=== PATIENT | female | born 1940 | race Caucasian/White ===

== ENCOUNTER 2017-12-27 02:20 | Emergency (ER) | payer MEDICARE ==
[2017-12-27] MEDS ORDERED: NORMAL SALINE 500 ML IV ONE (02:27)
[2017-12-27] MEDS ORDERED: ONDANSETRON HCL INJ/PF 4 MG/2 ML SDV IV ONE (02:28)
--- NOTE | 2017-12-27 02:55 | ER Document Report ---
ED General - General Chief Complaint: Altered Mental Status Stated Complaint: SHORT OF BREATH,NAUSEA Time Seen by Provider: 12/27/17 02:27 Notes: Patient is a pleasant 77-year-old female who presents with complaint of some confusion some difficulty breathing. Patient and her family just recently moved here from [place]. She does have history of lung cancer. Daughter says that for a while now she has not been eating well. She recently she refused to be any type of solid foods. She says up in [place] that Medicaid and they are giving her Ensure which she did well with but they have been unable to get a since moving here except not transferred into new insurance. She denies any fevers. Had some vomiting. She has had some intermittent diarrhea as well. She does have history of C. difficile. She has not recently been on antibiotics. She does not have any abdominal pain. No chest pain. She initially was short of breath and will be confused and paramedics arrived. When they checked her blood sugar read low. They therefore gave her some oral glucose and her blood sugar came up to 100 and then her dyspnea and confusion resolved. She is not diabetic. She is on seizure medications. She has a history of a brain tumor because of metastases from her lung cancer. Because of this she has a history of seizures. She is currently on seizure medications. Daughter says she has not had a seizure since August. Daughter says she will sometimes get seizures when she starts developing infection such as UTIs which she frequently gets. She has not been established with a doctor in the area yet. No other complaints at this time. TRAVEL OUTSIDE OF THE [place] IN LAST 30 DAYS: No - Related Data Allergies/Adverse Reactions: acetaminophen [From Tylenol] Allergy (Verified 12/27/17 18:44) Penicillins Allergy (Verified 12/27/17 12:01) Past Medical History - Social History Smoking Status: Unknown if Ever Smoked Chew tobacco use (# tins/day): No Frequency of alcohol use: None Drug Abuse: None Family History: Reviewed & Not Pertinent Patient has suicidal ideation: No Patient has homicidal ideation: No Pulmonary Medical History: Reports: Hx COPD Neurological Medical History: Reports: Hx Migraine Renal/ Medical History: Denies: Hx Peritoneal Dialysis Physical Exam - Vital signs Vitals: Resp 17 12/27/17 02:30 Course - Re-evaluation Re-evalutation: 04/11/18 05:44 Patient continues to look clinically very well here. She was able to eat a cup and half applesauce without any difficulty. Her laboratory evaluation is unremarkable except for mild UTI. Will place her on 3 days of antibiotics for this. Patient also has diarrhea for last 4 days and is prone to C. difficile infections he gets infrequently according to the daughter. I will therefore place her on Flagyl. She was able to give a stool sample while here in the ER. She is afebrile and vital signs are stable. Feel she is safe to be discharged home. I talked to daughter at length informed her the importance of following up with primary care doctor in area. I will give them a list of primary care doctors. Also give them referral to Dr. Lux being that she has a history of lung cancer and her chest x-ray shows what appears to be either a spiculated mass or scarring from her previous cancer. I did inform the daughter of this and the need to follow-up closely with oncologist and the daughter agrees to do this. Patient also is to be followed by digital asset specialist and therefore will refer her to Dr. Forbes. I informed the daughter that the need to start given the patient nutritional supplement drinks pain that she does not eat much. Also to continue give her soft diet of food as she was able eat applesauce well and does seem to tolerate soft foods well. I informed her return to ER immediately if she has recurrent low blood sugar, fevers, recurrent vomiting, any pain, or she appears unwell in any way. Patient and daughter agree with plan and patient will be discharged home. Dictation of this chart was performed using voice recognition software; therefore, there may be some unintended grammatical errors. - Vital Signs Vital signs: Temp Pulse Resp BP Pulse Ox 98.7 F 71 19 152/82 H 98 12/27/17 05:27 12/27/17 02:39 12/27/17 05:27 12/27/17 05:27 12/27/17 05:27 - Laboratory Result Diagrams: 12/27/17 03:50 12/27/17 03:50 Laboratory results interpreted by me: 12/27/17 12/27/17 12/27/17 02:23 03:50 03:50 Hgb 11.9 L Hct 35.0 L Seg Neutrophils % 87.7 H Lymphocytes % 6.1 L Sodium 146.8 H Chloride 109 H Glucose 149 H POC Glucose 117 H AST 12 L Total Protein 6.2 L Ur Leukocyte Esterase 12/27/17 03:50 Hgb Hct Seg Neutrophils % Lymphocytes % Sodium Chloride Glucose POC Glucose AST Total Protein Ur Leukocyte Esterase LARGE H - EKG Interpretation by Me Additional EKG results interpreted by me: 12/27/17 02:54 EKG is reviewed and interpreted by me. EKG shows sinus rhythm with a rate of [address] segment elevation or depression. No ischemic T-wave inversions. Pure interval slightly prolonged. QRS duration and QTc intervals are within normal range. No old EKG available for comparison. Discharge - Discharge Clinical Impression: UTI (urinary tract infection), Hypoglycemia Diarrhea Qualifiers: Diarrhea type: unspecified type Qualified Code(s): R19.7 - Diarrhea, unspecified Condition: Good Disposition: HOME, SELF-CARE Instructions: Family Physicians / Practices Additional Instructions: Please take the antibiotics as prescribed. please return to the ER immediately if you develop difficulty breathing, fevers, abdominal pain, confusion, or feel that you are worsening in any way. Please call the oncologist, Dr. Lux, to make a close follow up appointment to continue to manage your lung cancer. Please call the digital asset specialist, Dr. Forbes, to make a follow up appointment. I have also provided a list of primary care physicians in the area. Please establish yourself with a primary care physician to help manage your chronic medical problems. Continue to eat soft foods such as apple sauce and drink calorie drinks such as Ensure. Referrals: KODY FORBES MD [ACTIVE STAFF] - Follow up in 3-5 days STEVEN LUX MD [ACTIVE STAFF] - Follow up in 3-5 days
--- NOTE | 2017-12-27 03:33 | RADIOLOGY REPORT (SQ) ---
EXAM DESCRIPTION: CHEST SINGLE VIEW CLINICAL HISTORY: 77 years Female, dyspnea, hypoglycemia COMPARISON: None. NUMBER OF VIEWS/TECHNIQUE: 1/AP LIMITATIONS: Rotation. FINDINGS: Moderate right suprahilar spiculated opacity measures 3.2 cm, right-sided tracheal shift, rotation artifact, prominent interstitium, normal cardiac silhouette, atherosclerosis, and intact bony thorax. IMPRESSION: Right suprahilar spiculated mass may indicate current or prior malignancy/scar.
[2017-12-27 04:09] LABS: ABSOLUTE EOSINOPHILS # (AUTO) 0.1 10^3/uL (0.0-0.6); ABSOLUTE LYMPHOCYTES (AUTO) 0.5 10^3/uL (0.5-4.7); ABSOLUTE MONOCYTES (AUTO) 0.5 10^3/uL (0.1-1.4); ABSOLUTE NEUT (AUTO) 7.9 10^3/uL (1.7-8.2); BASOPHILS % (AUTO) 0.5 % (0-2); EOSINOPHILS % (AUTO) 0.6 % (0-6); HEMOGLOBIN 11.9 g/dL (12.0-15.5); LYMPHOCYTES % (AUTO) 6.1 % (13-45); MEAN CORPUSCULAR HEMOGLOBIN 29.8 pg (27.0-33.4); MEAN CORPUSCULAR VOLUME 88 fl (80-97); MONOCYTES % (AUTO) 5.1 % (3-13); PLATELET COUNT 163 10^3/uL (150-450); RED BLOOD COUNT 3.99 10^6/uL (3.72-5.28); RED CELL DISTRIBUTION WIDTH 13.4 % (11.5-14.0); SEGMENTED NEUTROPHILS % (AUTO) 87.7 % (42-78); TOTAL CELLS COUNTED % (AUTO) 100 %
[2017-12-27 04:20] LABS: ALANINE AMINOTRANSFERASE 13 U/L (9-52); ALBUMIN 3.8 g/dL (3.5-5.0); ALKALINE PHOSPHATASE 102 U/L (38-126); ANION GAP 12 (5-19); APPEARANCE,URINE SLIGHTLY-CLOUDY; ASPARTATE AMINO TRANSFERASE 12 U/L (14-36); BILIRUBIN,DIRECT 0.2 mg/dL (0.0-0.4); BILIRUBIN,TOTAL 0.3 mg/dL (0.2-1.3); BILIRUBIN,URINE NEGATIVE (NEGATIVE); BLOOD UREA NITROGEN 13 mg/dL (7-20); CALCIUM 9.6 mg/dL (8.4-10.2); CARBON DIOXIDE 26 mmol/L (22-30); CHLORIDE 109 mmol/L (98-107); COLOR,URINE YELLOW; GLUCOSE 149 mg/dL (75-110); GLUCOSE, URINE NEGATIVE (NEGATIVE); KETONES,URINE NEGATIVE (NEGATIVE); LEUKOCYTE ESTERASE,URINE LARGE (NEGATIVE); LIPASE 59.8 U/L (23-300); NITRITE,URINE NEGATIVE (NEGATIVE); POTASSIUM 3.8 mmol/L (3.6-5.0); PROTEIN,URINE NEGATIVE (NEGATIVE); SODIUM 146.8 mmol/L (137-145); TOTAL PROTEIN 6.2 g/dL (6.3-8.2); URINE SPECIFIC GRAVITY 1.011; UROBILINOGEN,URINE NEGATIVE mg/dL (<2.0)
[2017-12-27] MEDS ORDERED: METRONIDAZOLE 500 MG TABLET PO ONE (05:17)
[2017-12-27] MEDS ORDERED: CEPHALEXIN 500 MG CAPSULE PO ONE (05:17)
[2017-12-27 05:40] VITALS: BP 152/82
--- NOTE | 2017-12-27 07:34 | EKG REPORT ---
SEVERITY:- NORMAL ECG - SINUS RHYTHM : Confirmed by: Virgil Gray MD 27-Dec-2017 07:34:19
== END 2017-12-27 05:40 | disposition home or self-care (01) ==
LOC: ER 02:20
DX: E16.2 Hypoglycemia, unspecified (principal); N39.0 Urinary tract infection, site not specified; R19.7 Diarrhea, unspecified; R11.10 Vomiting, unspecified; J44.9 Chronic obstructive pulmonary disease, unspecified; R56.9 Unspecified convulsions; Z79.899 Other long term (current) drug therapy; Z85.118 Personal history of other malignant neoplasm of bronchus and lung; Z85.841 Personal history of malignant neoplasm of brain; Z88.6 Allergy status to analgesic agent; Z88.0 Allergy status to penicillin
CPT/HCPCS: 93005; 99285; 96361; 96374; 36415; 82962; 83690; 85025; 80053; 81001; 84484; 71045; 93010; A9270 ×2; J2405; J7040

== ENCOUNTER 2018-01-12 09:05 | Observation (INO) | payer MEDICARE, MEDICAID ==
--- NOTE | 2018-01-12 09:43 | ER Document Report ---
ED Medical Screen (RME) - General Chief Complaint: Vomiting/Diarrhea Stated Complaint: VOMITING Time Seen by Provider: 01/12/18 09:35 Mode of Arrival: Wheelchair Information source: Patient, Relative Notes: 78-year-old female who was recently admitted for UTI presents with daughter's complaint of diarrhea, history of C. difficile, as well as headache with left eye pain. Patients daughter notes hx of brain surgery for a tumor Patient notes light sensitivity I have greeted and performed a rapid initial assessment of this patient. A comprehensive ED assessment and evaluation of the patient, analysis of test results and completion of the medical decision making process will be conducted by additional ED providers. PHYSICAL EXAMINATION: GENERAL: Elderly female holding her left eye and pain. HEAD: Atraumatic, normocephalic. EYES: Pupils equal round extraocular movements intact, conjunctiva slightly injected on the left ENT: Nares patent NECK: Normal range of motion LUNGS: No respiratory distress Musculoskeletal: Normal range of motion NEUROLOGICAL: Normal speech, normal gait. PSYCH: Normal mood, normal affect. SKIN: Warm, Dry, normal turgor, no rashes or lesions noted. TRAVEL OUTSIDE OF THE [place] IN LAST 30 DAYS: No - Related Data Allergies/Adverse Reactions: acetaminophen [From Tylenol] Allergy (Verified 01/12/18 09:07) Penicillins Allergy (Verified 01/12/18 09:07) Past Medical History - Past Medical History Cardiac Medical History: Reports: Hx Hypertension Pulmonary Medical History: Reports: Hx COPD Neurological Medical History: Reports: Hx Migraine, Hx Seizures Endocrine Medical History: Denies: Hx Diabetes Mellitus Type 1, Hx Diabetes Mellitus Type 2 Renal/ Medical History: Denies: Hx Peritoneal Dialysis Malignancy Medical History: Reports: Hx Brain Cancer - Surgery, Hx Colorectal Cancer - Surgery, Hx Lung Cancer - Chemo and radiation Psychiatric Medical History: Reports: Hx Dementia Infectious Medical History: Reports: Hx C-Diff Past Surgical History: Reports: Hx Appendectomy, Hx Hysterectomy, Other - Surgery for colon cancer and brain tumor - Immunizations History of Influenza Vaccine for 06/2017 - 11/2017 Season: No Physical Exam - Vital signs Vitals: Temp Pulse Resp BP Pulse Ox 97.8 F 79 16 169/74 H 98 01/12/18 09:27 01/12/18 09:27 01/12/18 09:27 01/12/18 09:27 01/12/18 09:27 Course - Vital Signs Vital signs: Temp Pulse Resp BP Pulse Ox 97.8 F 79 16 169/74 H 98 01/12/18 09:27 01/12/18 09:27 01/12/18 09:27 01/12/18 09:27 01/12/18 09:27
[2018-01-12] MEDS ORDERED: ONDANSETRON 4 MG TAB.RAPDIS PO ONE (09:54)
--- NOTE | 2018-01-12 10:18 | RADIOLOGY REPORT (SQ) ---
EXAM DESCRIPTION: CT HEAD WITHOUT COMPLETED DATE/TIME: 01/12/2018 10:07 am REASON FOR STUDY: headache , left eye pain COMPARISON: 12/27/2017 TECHNIQUE: Axial images acquired through the brain without intravenous contrast. Images reviewed wi th bone, brain and subdural windows. Additional sagittal and coronal reconstructions were generated. Images stored on PACS. All CT scanners at this facility use dose modulation, iterative reconstruction, and/or weight based d osing when appropriate to reduce radiation dose to as low as reasonably achievable (ALARA). [facility]: Dose Right [facility]: CareDose [facility]: Dose Right [facility]: Teradose 4D [facility]: [employer] RADIATION DOSE: CT Rad equipment meets quality standard of care and radiation dose reduction techniq ues were employed. CTDIvol: 53.2 mGy. DLP: 1017 mGy-cm.mGy. LIMITATIONS: None. FINDINGS: VENTRICLES: Prominent. 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 Stable encephalomalaci a both frontal lobes. No evidence of acute infarct. CEREBELLUM: No masses. No hemorrhage. No alteration of density. No evidence for acute infarction. EXTRAAXIAL SPACES: See above. ORBITS AND GLOBE: No intra- or extraconal masses. Normal contour of globe without masses. CALVARIUM: No fracture. PARANASAL SINUSES: No fluid or mucosal thickening. SOFT TISSUES: No mass or hematoma. OTHER: No other significant finding. IMPRESSION: Chronic changes. No acute findings. EVIDENCE OF ACUTE STROKE: NO. TECHNICAL DOCUMENTATION: JOB ID: [id number] Quality ID # [id number]: Final reports with documentation of one or more dose reduction techniques (e.g., Au tomated exposure control, adjustment of the mA and/or kV according to patient size, use of iterative reconstruction technique) 2010 [employer]- All Rights Reserved Reading location - IP/workstation name: [email or web address]
[2018-01-12] MEDS ORDERED: TETRACAINE HCL 0.5% OPH SOLN 2 ML OD ONE (11:07)
[2018-01-12] MEDS: NORMAL SALINE 1000 ML 1,000 ML IV PRN ×2 (11:13→21:09)
[2018-01-12 11:18] LABS: HEMATOCRIT 39.7 % (36.0-47.0); HEMOGLOBIN 13.2 g/dL (12.0-15.5); MEAN CORPUSCULAR HGB CONC 33.2 g/dL (32.0-36.0); MEAN CORPUSCULAR VOLUME 87 fl (80-97); PLATELET COUNT 222 10^3/uL (150-450); RED BLOOD COUNT 4.54 10^6/uL (3.72-5.28); RED CELL DISTRIBUTION WIDTH 13.6 % (11.5-14.0); WHITE BLOOD COUNT 13.9 10^3/uL (4.0-10.5)
[2018-01-12 11:34] LABS: ALANINE AMINOTRANSFERASE 10 U/L (9-52); ALBUMIN 4.7 g/dL (3.5-5.0); ALKALINE PHOSPHATASE 132 U/L (38-126); ANION GAP 12 (5-19); ASPARTATE AMINO TRANSFERASE 21 U/L (14-36); BILIRUBIN,DIRECT 0.3 mg/dL (0.0-0.4); BILIRUBIN,TOTAL 0.5 mg/dL (0.2-1.3); BLOOD UREA NITROGEN 16 mg/dL (7-20); CALCIUM 10.1 mg/dL (8.4-10.2); CARBON DIOXIDE 27 mmol/L (22-30); CHLORIDE 102 mmol/L (98-107); GLUCOSE 139 mg/dL (75-110); POTASSIUM 4.1 mmol/L (3.6-5.0); SODIUM 141.1 mmol/L (137-145); TOTAL PROTEIN 8.2 g/dL (6.3-8.2)
[2018-01-12 11:48] LABS: ABSOLUTE LYMPHOCYTES# (MANUAL) 0.1 10^3/uL (0.5-4.7); ABSOLUTE MONOCYTES # (MANUAL) 0.3 10^3/uL (0.1-1.4); ABSOLUTE NEUTROPHILS# (MANUAL) 13.5 10^3/uL (1.7-8.2); BASOPHILS % (MANUAL) 0 % (0-2); EOSINOPHILS % (MANUAL) 0 % (0-6); LYMPHOCYTES % (MANUAL) 1 % (13-45); MONOCYTES % (MANUAL) 2 % (3-13); SEGMENTED NEUTROPHILS % (MAN) 97 % (42-78); TOTAL CELLS COUNTED 100
[2018-01-12 11:49] LABS: ANISOCYTOSIS SLIGHT; OVALOCYTES SLIGHT; PLATELET COMMENT ADEQUATE; POIKILOCYTOSIS SLIGHT; TEAR DROP CELLS SLIGHT
--- NOTE | 2018-01-12 16:52 | ER Document Report ---
ED GI/ - General Mode of Arrival: Wheelchair Information source: Patient TRAVEL OUTSIDE OF THE [place] IN LAST 30 DAYS: No - HPI Patient complains to provider of: Diarrhea. No: Abdominal pain, Dysuria, Feeding tube problem, Flank pain, Greene catheter problem, Hematuria, Missed/ Late menses, Pelvic pain, , Urinary retention, Vaginal bleeding, Vaginal discharge, Vaginal pain, Vomiting, Other Severity at maximum: Moderate Severity in ED: Moderate Pain Level: 2 <GRACIE FRANK - Last Filed: 01/12/18 16:52> <OMAR MANRIQUE - Last Filed: 01/13/18 22:47> - General Chief Complaint: Vomiting/Diarrhea Stated Complaint: VOMITING Time Seen by Provider: 01/12/18 09:35 Notes: History of [id number]-old female who was recently admitted for UTI presents with daughter's complaint of diarrhea, history of C. difficile, as well as headache with left eye pain. Patients daughter notes hx of brain surgery for a tumor . No seizure activity. Complain of pain over the left eye. Left eye has a cataract which cannot be operated. She is blind from . No cough shortness of breath chest pain. Patient notes light sensitivity REVIEW OF SYSTEMS: CONSTITUTIONAL : Denies fever, chills, or sweats. Denies recent illness. EENT: Denies eye, ear, throat, or mouth pain or symptoms. Denies nasal or sinus congestion or discharge. Denies throat, tongue, or mouth swelling or difficulty swallowing. CARDIOVASCULAR: Denies chest pain. Denies palpitations or racing or irregular heart beat. Denies ankle edema. RESPIRATORY: Denies cough, cold, or chest congestion. Denies shortness of breath, difficulty breathing, or wheezing. GASTROINTESTINAL: Denies abdominal pain or distention. Denies nausea, vomiting , or diarrhea. Denies blood in vomitus, stools, or per rectum. Denies black, tarry stools. Denies constipation. GENITOURINARY: Denies difficulty urinating, painful urination, burning, frequency, blood in urine, or discharge. FEMALE GENITOURINARY: Denies vaginal bleeding, heavy or abnormal periods, irregular periods. Denies vaginal discharge or odor. MUSCULOSKELETAL: Denies back or neck pain or stiffness. Denies joint pain or swelling. SKIN: Denies rash, lesions or sores. HEMATOLOGIC : Denies easy bruising or bleeding. LYMPHATIC: Denies swollen, enlarged glands. NEUROLOGICAL: Denies confusion or altered mental status. Denies passing out or loss of consciousness. Denies dizziness or lightheadedness. Denies headache. Denies weakness or paralysis or loss of use of either side. Denies problems with gait or speech. Denies sensory loss, numbness, or tingling. Denies seizures. PSYCHIATRIC: Denies anxiety or stress. Denies depression, suicidal ideation, or homicidal ideation. ALL OTHER SYSTEMS REVIEWED AND NEGATIVE. PHYSICAL EXAMINATION: GENERAL: seems to be in pain over the left eye. Lean female HEAD: Atraumatic, normocephalic. EYES: Pupils equal round and reactive to light, extraocular movements intact, conjunctiva on the left side is erythematous ENT: Nares patent, oropharynx clear without exudates. Moist mucous membranes. NECK: Normal range of motion, supple without lymphadenopathy LUNGS: Breath sounds clear to auscultation bilaterally and equal. No wheezes rales or rhonchi. HEART: Regular rate and rhythm without murmurs ABDOMEN: Soft, nontender, nondistended abdomen. No guarding, no rebound. No masses appreciated. Female : deferred Musculoskeletal: Normal range of motion, no pitting or edema. No cyanosis. NEUROLOGICAL: Cranial nerves grossly intact. Normal speech, normal gait. Normal sensory, motor exams PSYCH: Normal mood, normal affect. SKIN: Warm, Dry, normal turgor, no rashes or lesions noted. Dictation was performed using [employer] voice recognition software (GRACIE FRANK) - Related Data Allergies/Adverse Reactions: acetaminophen [From Tylenol] Allergy (Verified 01/12/18 09:07) Penicillins Allergy (Verified 01/12/18 09:07) Past Medical History - General Information source: Patient, Relative - Social History Smoking Status: Former Smoker Chew tobacco use (# tins/day): No Frequency of alcohol use: None Drug Abuse: None Family History: Reviewed & Not Pertinent Patient has suicidal ideation: No Patient has homicidal ideation: No - Past Medical History Cardiac Medical History: Reports: Hx Hypertension Pulmonary Medical History: Reports: Hx COPD Neurological Medical History: Reports: Hx Migraine, Hx Seizures Endocrine Medical History: Denies: Hx Diabetes Mellitus Type 1, Hx Diabetes Mellitus Type 2 Renal/ Medical History: Denies: Hx Peritoneal Dialysis Malignancy Medical History: Reports: Hx Brain Cancer - Surgery, Hx Colorectal Cancer - Surgery, Hx Lung Cancer - Chemo and radiation Psychiatric Medical History: Reports: Hx Dementia Infectious Medical History: Reports: Hx C-Diff Past Surgical History: Reports: Hx Appendectomy, Hx Hysterectomy, Other - Surgery for colon cancer and brain tumor <GRACIE FRANK - Last Filed: 01/12/18 16:52> Review of Systems - Review of Systems Constitutional: denies: No symptoms reported, See HPI, Chills, Diaphoresis, Fever, Malaise, Weakness, Other, Weight gain, Weight loss, Recent illness EENT: Eye pain. denies: No symptoms reported, See HPI, Eye discharge, Blurred vision, Tearing, Double vision, Ear pain, Ear discharge, Nose pain, Nose congestion, Nose discharge, Sinus pressure, Sinus discharge, Throat pain, Difficulty swallowing, Throat swelling, Mouth pain, Mouth swelling, Dental problem, Vertigo, Other Cardiovascular: denies: No symptoms reported, See HPI, Chest pain, Palpitations , Heart racing, Orthopnea, Dyspnea, Syncope, Dizziness, Lightheaded, Edema, Other, Paroxysmal Nocturnal Dysp Respiratory: denies: No symptoms reported, See HPI, Cough, Hurts to breathe, Hemoptysis, Short of breath, Sputum, Stridor, Wheezing, Other Gastrointestinal: denies: No symptoms reported, See HPI, Abdomen distended, Abdominal pain, Diarrhea, Nausea, Vomiting, Constipation, Blood streaked bowels , Poor appetite, Poor fluid intake, Blood in vomit, Black stools, Rectal bleeding, Last bowel movement, Fecal incontinence, Other Genitourinary: denies: No symptoms reported, See HPI, Burning, Dysuria, Discharge, Frequency, Flank pain, Hematuria, Incontinence, Pain, Urgency, Retention, Other Female Genitourinary: denies: No symptoms reported, See HPI, Last menstrual period, , Post menopausal, Heavy/abnormal periods, Irregular period, Vaginal bleeding, Vaginal discharge, Vaginal odor, Painful intercourse, Other <GRACIE FRANK - Last Filed: 01/12/18 16:52> Physical Exam <GRACIE FRANK - Last Filed: 01/12/18 16:52> <OMAR MANRIQUE - Last Filed: 01/13/18 22:47> - Vital signs Vitals: Temp Pulse Resp BP Pulse Ox 97.8 F 79 16 169/74 H 98 01/12/18 09:27 01/12/18 09:27 01/12/18 09:27 01/12/18 09:27 01/12/18 09:27 - Notes Notes: Dictated (GRACIE FRANK) Course - Laboratory Result Diagrams: 01/12/18 10:50 01/12/18 10:50 - Diagnostic Test Radiology reviewed: Reports reviewed - CT of the abdomen reported by radiologist as no new findings no tumors <GRACIE FRANK - Last Filed: 01/12/18 16:52> - Laboratory Result Diagrams: 01/13/18 04:18 01/13/18 04:18 - Diagnostic Test Radiology reviewed: Pending <OMAR MANRIQUE - Last Filed: 01/13/18 22:47> - Re-evaluation Re-evalutation: 01/12/18 16:55 I was examined under Elena lamp with fluorescein dye there is no injury noted as well as no foreign bodies (GRACIE FRANK) 01/12/18 19:39 Asked to see the patient upon discharge by nursing. Patient now complaining of chest pain that she states started this morning. She describes it as a intermittent sharp pain. Shortly after my first encounter with the patient she began having a seizure. Ativan and Keppra was administered for this. CTA of the chest was obtained and showed no evidence of PE or dissection. Cardiac enzymes were obtained and within normal limits. Patient will be admitted for observation. 01/13/18 22:46 (OMAR MANRIQUE) - Vital Signs Vital signs: Temp Pulse Resp BP Pulse Ox 98.2 F 85 18 168/67 H 99 01/13/18 19:56 01/13/18 19:56 01/13/18 19:56 01/13/18 19:56 01/13/18 19:56 - Laboratory Laboratory results interpreted by me: 01/12/18 01/12/18 01/12/18 10:50 10:50 16:08 WBC 13.9 H Seg Neuts % (Manual) 97 H Lymphocytes % (Manual) 1 L Monocytes % (Manual) 2 L Abs Neuts (Manual) 13.5 H Abs Lymphs (Manual) 0.1 L Glucose 139 H Alkaline Phosphatase 132 H Urine Protein 100 H Urine Ketones TRACE H Urine Blood SMALL H Ur Leukocyte Esterase SMALL H Discharge <GRACIE FRANK - Last Filed: 01/12/18 16:52> <OMAR MANRIQUE - Last Filed: 01/13/18 22:47> - Discharge Clinical Impression: Gastroenteritis, Chest pain, UTI (urinary tract infection), History of lung cancer, Seizure disorder, HTN (hypertension) Conjunctivitis Qualifiers: Conjunctivitis type: acute Acute conjunctivitis type: bacterial Laterality: bilateral Qualified Code(s): H10.33 - Unspecified acute conjunctivitis, bilateral Headache Qualifiers: Headache type: unspecified Headache chronicity pattern: acute headache Intractability: not intractable Qualified Code(s): R51 - Headache Condition: Fair Disposition: ADMITTED OBSERVATION
[2018-01-12 17:01] LABS: APPEARANCE,URINE CLOUDY; BILIRUBIN,URINE NEGATIVE (NEGATIVE); GLUCOSE, URINE NEGATIVE (NEGATIVE); KETONES,URINE TRACE mg/dL (NEGATIVE); LEUKOCYTE ESTERASE,URINE SMALL (NEGATIVE); NITRITE,URINE NEGATIVE (NEGATIVE); PROTEIN,URINE 100 mg/dL (NEGATIVE); URINE SPECIFIC GRAVITY 1.014; UROBILINOGEN,URINE NEGATIVE mg/dL (<2.0)
[2018-01-12 17:05] LABS: COLOR,URINE YELLOW
[2018-01-12] MEDS ORDERED: GENTAMICIN SULFATE 0.3% OPH SOLN 5 ML OU ONE (17:07)
[2018-01-12] MEDS ORDERED: ASPIRIN 81 MG TABLET, CHEWABLE PO ONE (20:13)
[2018-01-12] MEDS ORDERED: LEVETIRACETAM 500 MG/NACL-ISO 500 MG/100 ML RTUPB IV ONE (20:53)
[2018-01-12] MEDS ORDERED: LORAZEPAM INJ 2 MG/1 ML VIAL IV ONE ×3 (20:53→23:28)
[2018-01-12 21:11] LABS: CREATINE KINASE MB 1.21 ng/mL (<4.55)
[2018-01-12 21:15] LABS: TROPONIN I < 0.012 ng/mL
--- NOTE | 2018-01-12 21:30 | ER Document Report ---
ED General - General Chief Complaint: Vomiting/Diarrhea Stated Complaint: VOMITING Time Seen by Provider: 01/12/18 09:35 Mode of Arrival: Wheelchair Information source: Patient, Relative Notes: 78-year-old female with a history of hypertension, lung cancer, seizure disorder , colon cancer, brain cancer presented to the emergency department earlier today for nausea, vomiting and diarrhea. Upon discharge patient is now complaining of chest pain. I was asked by nursing to evaluate the patient for chest pain and elevated blood pressure. Patient states pain started this morning. She states that she did not want to say anything because she wanted to go home. She describes the pain as intermittent, sharp and with associated shortness of breath. Daughter is at the bedside and states patient had a recent PET scan which showed improvement of her lung cancer. Patient had a recent urinary tract infection and was placed on Cipro. Daughter reports that her last dose was yesterday. Patient recently moved to [place] and is currently staying at the [facility] with her daughter. Her cancer treatment was ongoing in [place]. TRAVEL OUTSIDE OF THE [place] IN LAST 30 DAYS: No - HPI Onset: This morning Onset/Duration: Intermittent Quality of pain: Stabbing Severity: Mild Associated symptoms: Chest pain, Diarrhea, Nausea, Vomiting, Shortness of breath Exacerbated by: Denies Relieved by: Denies Similar symptoms previously: Yes Recently seen / treated by doctor: Yes - Related Data Allergies/Adverse Reactions: acetaminophen [From Tylenol] Allergy (Verified 01/12/18 09:07) Penicillins Allergy (Verified 01/12/18 09:07) Past Medical History - General Information source: Patient, Relative - Social History Smoking Status: Former Smoker Chew tobacco use (# tins/day): No Frequency of alcohol use: None Drug Abuse: None Family History: Reviewed & Not Pertinent Patient has suicidal ideation: No Patient has homicidal ideation: No - Past Medical History Cardiac Medical History: Reports: Hx Hypertension Pulmonary Medical History: Reports: Hx COPD Neurological Medical History: Reports: Hx Migraine, Hx Seizures Endocrine Medical History: Denies: Hx Diabetes Mellitus Type 1, Hx Diabetes Mellitus Type 2 Renal/ Medical History: Denies: Hx Peritoneal Dialysis Malignancy Medical History: Reports: Hx Brain Cancer - Surgery, Hx Colorectal Cancer - Surgery, Hx Lung Cancer - Chemo and radiation Psychiatric Medical History: Reports: Hx Dementia Infectious Medical History: Reports: Hx C-Diff Past Surgical History: Reports: Hx Appendectomy, Hx Hysterectomy, Other - Surgery for colon cancer and brain tumor Review of Systems - Review of Systems Notes: Patient denies fever, headache, ear pain, sore throat, cough, abdominal pain, back pain, dysuria, hematuria, rash. Complaining of nausea, vomiting, diarrhea , chest pain, worsening shortness of breath. Physical Exam - Vital signs Vitals: Temp Pulse Resp BP Pulse Ox 97.8 F 79 16 169/74 H 98 01/12/18 09:27 01/12/18 09:27 01/12/18 09:27 01/12/18 09:01/12/18 09:27 Interpretation: Normal - Notes Notes: PHYSICAL EXAMINATION: GENERAL: ill appearing, mal-nourished and in no acute distress. appears dehydrated HEAD: Atraumatic, normocephalic. EYES: Pupils equal round and reactive to light, extraocular movements intact, erythema of the left conjunctiva. ENT: Nares patent, oropharynx clear without exudates. Moist mucous membranes. NECK: Normal range of motion, supple without lymphadenopathy LUNGS: Breath sounds clear to auscultation bilaterally and equal. No wheezes rales or rhonchi. HEART: Regular rate and rhythm without murmurs ABDOMEN: Soft, nontender, nondistended abdomen. No guarding, no rebound. No masses appreciated. Female : deferred Musculoskeletal: Normal range of motion, no pitting or edema. No cyanosis. NEUROLOGICAL: Cranial nerves grossly intact. Normal speech, normal gait. Normal sensory, motor exams PSYCH: Normal mood, normal affect. SKIN: Warm, Dry, normal turgor, no rashes or lesions noted. Course - Re-evaluation Re-evalutation: Laboratory 01/12/18 01/12/18 01/12/18 10:50 10:50 10:50 WBC 13.9 H RBC 4.54 Hgb 13.2 Hct 39.7 MCV 87 MCH 29.0 MCHC 33.2 RDW 13.6 Plt Count 222 Total Counted 100 Seg Neutrophils % Not Reportable Seg Neuts % (Manual) 97 H Lymphocytes % Not Reportable Lymphocytes % (Manual) 1 L Monocytes % Not Reportable Monocytes % (Manual) 2 L Eosinophils % Not Reportable Eosinophils % (Manual) 0 Basophils % Not Reportable Basophils % (Manual) 0 Absolute Neutrophils Not Reportable Abs Neuts (Manual) 13.5 H Absolute Lymphocytes Not Reportable Abs Lymphs (Manual) 0.1 L Absolute Monocytes Not Reportable Abs Monocytes (Manual) 0.3 Absolute Eosinophils Not Reportable Absolute Eos (Manual) 0.0 Absolute Basophils Not Reportable Abs Basophils (Manual) 0.0 Platelet Comment ADEQUATE Poikilocytosis SLIGHT Anisocytosis SLIGHT Tear Drop Cells SLIGHT Ovalocytes SLIGHT Sodium 141.1 Potassium 4.1 Chloride 102 Carbon Dioxide 27 Anion Gap 12 BUN 16 Creatinine 0.79 Est GFR ( Amer) > 60 Est GFR (Non-Af Amer) > 60 Glucose 139 H Calcium 10.1 Total Bilirubin 0.5 Direct Bilirubin 0.3 Neonat Total Bilirubin Not Reportable Neonat Direct Bilirubin Not Reportable Neonat Indirect Bili Not Reportable AST 21 ALT 10 Alkaline Phosphatase 132 H Creatine Kinase 81 CK-MB (CK-2) Troponin I Total Protein 8.2 Albumin 4.7 Urine Color Urine Appearance Urine pH Ur Specific Colman Urine Protein Urine Glucose (UA) Urine Ketones Urine Blood Urine Nitrite Urine Bilirubin Urine Urobilinogen Ur Leukocyte Esterase Urine WBC (Auto) Urine RBC (Auto) U Hyaline Cast (Auto) Urine Bacteria (Auto) Squamous Epi Cells Auto Urine Mucus (Auto) Urine Ascorbic Acid 01/12/18 01/12/18 10:50 16:08 WBC RBC Hgb Hct MCV MCH MCHC RDW Plt Count Total Counted Seg Neutrophils % Seg Neuts % (Manual) Lymphocytes % Lymphocytes % (Manual) Monocytes % Monocytes % (Manual) Eosinophils % Eosinophils % (Manual) Basophils % Basophils % (Manual) Absolute Neutrophils Abs Neuts (Manual) Absolute Lymphocytes Abs Lymphs (Manual) Absolute Monocytes Abs Monocytes (Manual) Absolute Eosinophils Absolute Eos (Manual) Absolute Basophils Abs Basophils (Manual) Platelet Comment Poikilocytosis Anisocytosis Tear Drop Cells Ovalocytes Sodium Potassium Chloride Carbon Dioxide Anion Gap BUN Creatinine Est GFR ( Amer) Est GFR (Non-Af Amer) Glucose Calcium Total Bilirubin Direct Bilirubin Neonat Total Bilirubin Neonat Direct Bilirubin Neonat Indirect Bili AST ALT Alkaline Phosphatase Creatine Kinase CK-MB (CK-2) 1.21 Troponin I < 0.012 Total Protein Albumin Urine Color YELLOW Urine Appearance CLOUDY Urine pH 7.0 Ur Specific Colman 1.014 Urine Protein 100 H Urine Glucose (UA) NEGATIVE Urine Ketones TRACE H Urine Blood SMALL H Urine Nitrite NEGATIVE Urine Bilirubin NEGATIVE Urine Urobilinogen NEGATIVE Ur Leukocyte Esterase SMALL H Urine WBC (Auto) 5 Urine RBC (Auto) 1 U Hyaline Cast (Auto) 1 Urine Bacteria (Auto) 3+ Squamous Epi Cells Auto 1 Urine Mucus (Auto) RARE Urine Ascorbic Acid NEGATIVE Head CT 01/12/18 09:41 IMPRESSION: Chronic changes. No acute findings. EVIDENCE OF ACUTE STROKE: NO. 01/12/18 21:30 78-year-old female presented with complaint of nausea, vomiting, abdominal pain. Patient was seen by a.m. physician and upon discharge started complaining of chest pain that has been ongoing since this am. Was asked by nursing to evaluate the patient for chest pain. Patient was placed on playground monitor and EKG was obtained which showed the patient to be in normal sinus rhythm at a rate of 66. Patient has had elevated blood pressure. There is at the bedside and states due to patient's nausea and vomiting she has been unable to take any of her home medications. CT of the head was obtained earlier and showed no acute process. No evidence of end organ damage on previous labs. Cardiac enzymes were within normal limits. Shortly after my evaluation patient had a seizure which required Ativan. 500 mg of Keppra IV was also administered. CTA of the chest was obtained and showed no evidence of PE, or dissection. Patient will be admitted for observation. 01/13/18 00:15 - Vital Signs Vital signs: Temp Pulse Resp BP Pulse Ox 97.8 F 79 17 199/66 H 99 01/12/18 09:27 01/12/18 09:27 01/12/18 20:31 01/12/18 20:31 01/12/18 20:31 - Laboratory Result Diagrams: 01/12/18 10:50 01/12/18 10:50 Laboratory results interpreted by me: 01/12/18 01/12/18 01/12/18 10:50 10:50 16:08 WBC 13.9 H Seg Neuts % (Manual) 97 H Lymphocytes % (Manual) 1 L Monocytes % (Manual) 2 L Abs Neuts (Manual) 13.5 H Abs Lymphs (Manual) 0.1 L Glucose 139 H Alkaline Phosphatase 132 H Urine Protein 100 H Urine Ketones TRACE H Urine Blood SMALL H Ur Leukocyte Esterase SMALL H - Diagnostic Test Radiology reviewed: Pending, Image reviewed - EKG Interpretation by Me EKG shows normal: Sinus rhythm Rate: Normal Discharge - Discharge Clinical Impression: Gastroenteritis, History of lung cancer, Seizure disorder Conjunctivitis Qualifiers: Conjunctivitis type: acute Acute conjunctivitis type: bacterial Laterality: left Qualified Code(s): H10.32 - Unspecified acute conjunctivitis, left eye Headache Qualifiers: Headache type: unspecified Headache chronicity pattern: acute headache Intractability: not intractable Qualified Code(s): R51 - Headache Chest pain Qualifiers: Chest pain type: unspecified Qualified Code(s): R07.9 - Chest pain, unspecified UTI (urinary tract infection) Qualifiers: Urinary tract infection type: site unspecified Hematuria presence: without hematuria Qualified Code(s): N39.0 - Urinary tract infection, site not specified HTN (hypertension) Qualifiers: Hypertension type: unspecified Qualified Code(s): I10 - Essential (primary) hypertension Condition: Fair Disposition: ADMITTED OBSERVATION Admitting Provider: Hospitalist Unit Admitted: Telemetry Instructions: Diarrhea, Nonspecific ([facility]), Gastroenteritis (adult) ([facility]) Prescriptions: Ciprofloxacin HCl [Cipro 500 mg Tablet] 500 mg PO BID #20 tablet
[2018-01-12] MEDS ORDERED: NORMAL SALINE 1000 ML 1,000 ML IV ONE (22:22)
[2018-01-12] MEDS ORDERED: LORAZEPAM INJ 2 MG/1 ML VIAL ONE (22:54)
--- NOTE | 2018-01-13 00:04 | RADIOLOGY REPORT (SQ) ---
EXAM DESCRIPTION: CTA CHEST CLINICAL HISTORY: 78 years Female, Pain history of lung cancer COMPARISON: 12.27.17 TECHNIQUE: IV contrast. Multiplanar reformat. This exam was performed according to our departmental dose-optimization program, which includes automated exposure control, adjustment of the mA and/or kV according to patient size and/or use of iterative reconstruction technique. FINDINGS: No acute cardiopulmonary findings. No pulmonary embolus. No right ventricular strain. Small likely fibrosis scar of the right upper lobe and strandy opacity in the right lower lobe with moderate rightward mediastinal and cardiac shift consistent with prior CT from December 27, 2017 and history of lung cancer. Atherosclerosis. Inferior neck, axillae, mediastinum, lungs, airway, lymphatics, heart, vasculature, upper abdomen, and musculoskeleton appear otherwise unremarkable. Impression: No acute cardiopulmonary findings. No pulmonary embolus. Chronic scar pattern of the right lung consistent with history of treated lung cancer.
[2018-01-13] MEDS ORDERED: LACTULOSE SYRUP 20 GM/30 ML UDCUP PR ONE (00:12)
[2018-01-13] MEDS ORDERED: LACTULOSE SYRUP 20 GM/30 ML UDCUP PO ONE (00:12)
[2018-01-13] MEDS ORDERED: ACETAMINOPHEN 325 MG TABLET PO PRN (00:16)
[2018-01-13] MEDS ORDERED: MAG HYDROX/AL HYDROX/SIMETH SUSP 30 ML UDCUP PO PRN (00:16)
[2018-01-13] MEDS ORDERED: IPRATROPIUM/ALBUTEROL 0.5-2.5 MG/3 ML AMPUL NEB PRN (00:16)
[2018-01-13] MEDS ORDERED: CARBIDOPA/LEVODOPA 25-100 MG TABLET PO ONE (00:30)
[2018-01-13] MEDS ORDERED: MIRTAZAPINE 15 MG TABLET PO ONE (00:30)
[2018-01-13] MEDS ORDERED: LAMOTRIGINE 100 MG TABLET PO ONE (01:00)
[2018-01-13] MEDS ORDERED: HYDRALAZINE HCL INJ/PF 20 MG/1 ML SDV IV PRN (02:33)
[2018-01-13] MEDS ORDERED: LACTULOSE SYRUP 20 GM/30 ML UDCUP ONE (02:36)
[2018-01-13] MEDS ORDERED: HYDRALAZINE HCL INJ/PF 20 MG/1 ML SDV IV ONE (02:45)
[2018-01-13] MEDS: NORMAL SALINE 1000 ML 1,000 ML IV PRN (02:50)
[2018-01-13] MEDS ORDERED: LORAZEPAM INJ 2 MG/1 ML VIAL IV ONE (03:30)
[2018-01-13] MEDS ORDERED: GENTAMICIN SULFATE 0.3% OPH SOLN 5 ML OU ONE (05:30)
[2018-01-13 05:32] LABS: HEMATOCRIT 40.4 % (36.0-47.0); HEMOGLOBIN 13.5 g/dL (12.0-15.5); MEAN CORPUSCULAR HEMOGLOBIN 28.9 pg (27.0-33.4); MEAN CORPUSCULAR HGB CONC 33.5 g/dL (32.0-36.0); MEAN CORPUSCULAR VOLUME 86 fl (80-97); PLATELET COUNT 223 10^3/uL (150-450); RED BLOOD COUNT 4.68 10^6/uL (3.72-5.28); WHITE BLOOD COUNT 16.6 10^3/uL (4.0-10.5)
[2018-01-13 05:50] LABS: ANION GAP 15 (5-19); BLOOD UREA NITROGEN 13 mg/dL (7-20); CALCIUM 9.7 mg/dL (8.4-10.2); CARBON DIOXIDE 21 mmol/L (22-30); CHLORIDE 100 mmol/L (98-107); GLUCOSE 112 mg/dL (75-110); POTASSIUM 3.9 mmol/L (3.6-5.0); SODIUM 136.2 mmol/L (137-145)
[2018-01-13 05:51] LABS: ABSOLUTE LYMPHOCYTES# (MANUAL) 0.7 10^3/uL (0.5-4.7); ABSOLUTE MONOCYTES # (MANUAL) 0.8 10^3/uL (0.1-1.4); ABSOLUTE NEUTROPHILS# (MANUAL) 15.1 10^3/uL (1.7-8.2); BASOPHILS % (MANUAL) 0 % (0-2); EOSINOPHILS % (MANUAL) 0 % (0-6); LYMPHOCYTES % (MANUAL) 4 % (13-45); MONOCYTES % (MANUAL) 5 % (3-13); SEGMENTED NEUTROPHILS % (MAN) 91 % (42-78); TOTAL CELLS COUNTED 100
[2018-01-13 05:53] LABS: PLATELET COMMENT ADEQUATE
[2018-01-13] MEDS: HEPARIN SOD (PORCINE) 5,000 UNIT/ML 1 ML SYRINGE SUBCUT SCH ×3 (05:53→23:27)
[2018-01-13 05:55] LABS: RBC MORPHOLOGY COMMENT NORMO-CYTIC/CHROMIC
--- NOTE | 2018-01-13 06:04 | PDOC H&P ---
History of Present Illness Admission Date/PCP: 01/13/18 00:16 Patient complains of: Abdominal pain nausea vomiting. History of Present Illness: WENDI SAMSON is a 78 year old female with a past medical history of hypertension, lung cancer, seizure disorder, breast, colon, brain cancer, Parkinson's with dementia. Patient presented to the emergency room with nausea vomiting abdominal pain unable to tolerate p.o. diet or medications. In the emergency room she has an initial unremarkable workup followed by a seizure treated with Ativan with postictal confusion/sedation. CT chest is unremarkable but notable for marketed fecal impaction. She is referred to the hospitalist for admission, unable to provide history secondary to sedation. Past Medical History Cardiac Medical History: Reports: Hypertension Pulmonary Medical History: Reports: Bronchitis, Chronic Obstructive Pulmonary Disease (COPD) Neurological Medical History: Reports: Migraine, Seizures Endocrine Medical History: Denies: Diabetes Mellitus Type 1, Diabetes Mellitus Type 2 Malignancy Medical History: Reports: Brain Cancer - Surgery, Colorectal Cancer - Surgery, Lung Cancer - Chemo and radiation GI Medical History: Reports: Other - Chronic constipation Psychiatric Medical History: Reports: Dementia Infectious Medical History: Reports: Clostridium Difficile Past Surgical History Past Surgical History: Reports: Appendectomy, Hysterectomy, Other - Surgery for colon cancer and brain tumor Social History Information Source: Emergency Med Personnel, [facility] Records Lives with: Family Smoking Status: Former Smoker Frequency of Alcohol Use: None Hx Recreational Drug Use: No Drugs: None Hx Prescription Drug Abuse: No - Advance Directive Resuscitation Status: Full Code Family History Family History: Other - Unobtainable Parental Family History Reviewed: No - Unobtainable Children Family History Reviewed: No - Unobtainable Sibling(s) Family History Reviewed.: No - Unobtainable Medication/Allergy Home Medications: Carbidopa/Levodopa [Sinemet 25-100 mg Tablet] 1 each PO TID 12/27/17 Cyanocobalamin (Vitamin B-12) [Vitamin B-12] 50 mcg PO DAILY 12/27/17 Dicyclomine HCl [Bentyl 10 mg Capsule] 10 mg PO TID 12/27/17 Fluticasone Propionate [Flonase Nasal [place] 50 Mcg/[place] 16 gm] 2 sprays NASL DAILY 12/27/17 Lamotrigine [Lamictal] 200 mg PO Q12 12/27/17 Levetiracetam [Keppra] 1,500 mg PO QAM 12/27/17 Memantine HCl [Namenda Xr] 28 mg PO DAILY 12/27/17 Topiramate [Topamax 100 mg Tablet] 100 mg PO Q12 12/27/17 Aspirin [Ecotrin 81 mg EC Tablet] 81 mg PO DAILY tabec 12/29/17 Metronidazole [Flagyl 500 mg Tablet] 500 mg PO Q8 #21 tablet 12/29/17 Mirtazapine [Remeron 15 mg Tablet] 7.5 mg PO QHS #30 tablet 12/29/17 Ciprofloxacin HCl [Cipro 500 mg Tablet] 500 mg PO BID #20 tablet 01/12/18 Allergies/Adverse Reactions: acetaminophen [From Tylenol] Allergy (Verified 01/12/18 09:07) Penicillins Allergy (Verified 01/12/18 09:07) Physical Exam Vital Signs: Temp Pulse Resp BP Pulse Ox 98.5 F 84 18 181/68 H 98 01/13/18 03:37 01/13/18 04:53 01/13/18 03:37 01/13/18 04:53 01/13/18 03:37 Intake & Output 01/11/18 01/12/18 01/13/18 11:59 11:59 11:59 Weight 44.9 kg General appearance: PRESENT: disheveled, thin. ABSENT: cooperative Head exam: PRESENT: atraumatic, normocephalic Eye exam: PRESENT: conjunctival injection, other - Conjunctival exudate left side Ear exam: PRESENT: normal external ear exam Mouth exam: PRESENT: moist, tongue midline Neck exam: ABSENT: carotid bruit, JVD, lymphadenopathy, thyromegaly Respiratory exam: PRESENT: clear to auscultation rodrigo. ABSENT: rales, rhonchi, wheezes Cardiovascular exam: PRESENT: RRR. ABSENT: diastolic murmur, rubs, systolic murmur Pulses: PRESENT: normal dorsalis pedis pul Vascular exam: PRESENT: normal capillary refill GI/Abdominal exam: PRESENT: normal bowel sounds, soft. ABSENT: distended, guarding, mass, organolmegaly, rebound, tenderness Rectal exam: PRESENT: deferred Extremities exam: PRESENT: full ROM. ABSENT: calf tenderness, clubbing, pedal edema Neurological exam: PRESENT: altered, CN II-XII grossly intact - Protecting airway. ABSENT: alert, awake, oriented to person, oriented to place Psychiatric exam: PRESENT: appropriate affect, normal mood. ABSENT: homicidal ideation, suicidal ideation Focused psych exam: ABSENT: restlessness Skin exam: PRESENT: dry, intact, warm. ABSENT: cyanosis, rash Results Laboratory Results: 01/13/18 04:18 Seg Neutrophils % Not Reportable Lymphocytes % Not Reportable Monocytes % Not Reportable Eosinophils % Not Reportable Basophils % Not Reportable Absolute Neutrophils Not Reportable Absolute Lymphocytes Not Reportable Absolute Monocytes Not Reportable Absolute Eosinophils Not Reportable Absolute Basophils Not Reportable Impressions: Head CT 01/12/18 09:41 IMPRESSION: Chronic changes. No acute findings. EVIDENCE OF ACUTE STROKE: NO. Assessment & Plan - Diagnosis (1) Fecal impaction Is this a current diagnosis for this admission?: Yes Plan: Lactulose enema, clear liquids (2) Abdominal pain Is this a current diagnosis for this admission?: Yes Plan: Secondary to #1 (3) Nausea & vomiting Is this a current diagnosis for this admission?: Yes Plan: Secondary to #1 consider NG tube (4) Seizure Is this a current diagnosis for this admission?: Yes Plan: Chronic, secondary to inability to tolerate p.o. meds. IV Keppra (5) Dementia Qualifiers: Dementia type: Parkinson's disease Is this a current diagnosis for this admission?: Yes Plan: Resume Sinemet may require NG tube (6) HTN (hypertension) Qualifiers: Hypertension type: unspecified Qualified Code(s): I10 - Essential (primary ) hypertension Is this a current diagnosis for this admission?: Yes Plan: Hydralazine as needed - Time Time Spent: 50 to 70 Minutes - Inpatient Certification Medical Necessity: Need Close Monitoring Due to Risk of Patient Decompensation
[2018-01-13] MEDS ORDERED: LEVETIRACETAM 1500 MG/NACL-ISO 1,500 MG/100 ML RTUPB IV ONE (06:30)
[2018-01-13] MEDS ORDERED: LEVETIRACETAM INJ/PF 500 MG/5 ML SDV IV ONE (06:52)
[2018-01-13] MEDS: IPRATROPIUM/ALBUTEROL 0.5-2.5 MG/3 ML AMPUL NEB SCH ×2 (07:40→20:03)
[2018-01-13] MEDS ORDERED: LEVETIRACETAM 500 MG TABLET PO SCH (08:00)
--- NOTE | 2018-01-13 08:37 | EKG REPORT ---
SEVERITY:- NORMAL ECG - SINUS RHYTHM : Confirmed by: Virgil Gray MD 13-Jan-2018 08:36:52
[2018-01-13] MEDS ORDERED: GLUCAGON,HUMAN RECOMB 1 MG INJ SUBCUT PRN (10:53)
[2018-01-13] MEDS ORDERED: DEXTROSE 40% GEL 15 GM TUBE PO PRN ×2 (10:53)
[2018-01-13] MEDS ORDERED: DEXTROSE 50%-WATER 25 GM/50 ML DISP.SYRIN IV PRN ×2 (10:53)
--- NOTE | 2018-01-13 12:20 | RADIOLOGY REPORT (SQ) ---
EXAM DESCRIPTION: CT ABD/PELVIS NO ORAL OR IV COMPLETED DATE/TIME: 01/13/2018 11:57 am REASON FOR STUDY: N/V/D, leukocytosis; ?colitis v. obstruction R41.82 ALTERED MENTAL STATUS, UNSPEC IFIED K56.7 ILEUS, UNSPECIFIED COMPARISON: CT angio chest 01/12/2018 TECHNIQUE: CT scan of the abdomen and pelvis performed without intravenous or oral contrast. Images reviewed with lung, soft tissue, and bone windows. Reconstructed coronal and sagittal MPR images revi ewed. All images stored on PACS. All CT scanners at this facility use dose modulation, iterative reconstruction, and/or weight based d osing when appropriate to reduce radiation dose to as low as reasonably achievable (ALARA). [facility]: Dose Right [facility]: CareDose [facility]: Dose Right [facility]: Teradose 4D [facility]: Smart [email or web address] RADIATION DOSE: CT Rad equipment meets quality standard of care and radiation dose reduction techniq ues were employed. CTDIvol: 5.8 mGy. DLP: 283 mGy-cm.mGy. LIMITATIONS: There is residual IV contrast in the patient's bladder and gallbladder from yesterday's CT scan of the chest with contrast. FINDINGS: LOWER CHEST: Coronary artery calcifications. Small retrocardiac hiatal hernia. Lung base s are grossly clear. NON-CONTRASTED LIVER, SPLEEN, ADRENALS: Evaluation limited by lack of IV contrast. No identified sign ificant masses. PANCREAS: No masses. No peripancreatic inflammatory changes. GALLBLADDER: No identified stones by CT criteria. No inflammatory changes to suggest cholecystitis. RIGHT KIDNEY AND URETER: No suspicious masses. Assessment limited by lack of IV contrast. No signif icant calcifications. No hydronephrosis or hydroureter. LEFT KIDNEY AND URETER: No suspicious masses. Assessment limited by lack of IV contrast. No signifi cant calcifications. No hydronephrosis or hydroureter. AORTA AND RETROPERITONEUM: No aneurysm. No retroperitoneal masses or adenopathy. BOWEL AND PERITONEAL CAVITY: No obvious masses or inflammatory changes. No free fluid. APPENDIX: Not identified. PELVIS, BLADDER, AND ABDOMINAL WALL:No abnormal masses. No free fluid. Bladder normal. Post hysterec helena. BONES: No significant findings. OTHER: No other significant finding. IMPRESSION: NO SIGNIFICANT OR ACUTE PROCESS IN THE ABDOMEN OR PELVIS. COMMENT: Quality ID # [id number]: Final reports with documentation of one or more dose reduction techniques (e.g., Automated exposure control, adjustment of the mA and/or kV according to patient size, use of iterative reconstruction technique) TECHNICAL DOCUMENTATION: JOB ID: [id number] [employer]- All Rights Reserved Reading location - IP/workstation name: [email or web address]
--- NOTE | 2018-01-13 13:04 | RADIOLOGY REPORT (SQ) ---
EXAM DESCRIPTION: MRI HEAD WITHOUT COMPLETED DATE/TIME: 01/13/2018 12:54 pm REASON FOR STUDY: AMS; s/p seizure, hx rebecca ca R41.82 ALTERED MENTAL STATUS, UNSPECIFIED K56.7 IL EUS, UNSPECIFIED COMPARISON: CT brain 01/12/2018 TECHNIQUE: Multiplanar imaging includes non-contrasted T1, T2, FLAIR, and diffusion with ADC map seq uences. Images stored on PACS. LIMITATIONS: None. FINDINGS: ANATOMY: No anomalies. Normal vascular flow voids. Pituitary fossa normal. CSF SPACES: Normal in size and contour. No hemorrhage. CEREBRUM: Old right frontal craniotomy with bilateral inferior frontal encephalomalacia. Multiple fo ci of chronic small vessel ischemic change in the deep periventricular white matter. No CT evidence of acute ischemic change, acute intracranial hemorrhage, mass effect or midline shift. POSTERIOR FOSSA: No signal alteration. No hemorrhage. No edema, masses or mass effect. Internal vijaya tory canals, cerebello-pontine angles, mastoids normal. DIFFUSION IMAGING: Negative for acute or sub-acute infarction. ORBITS: No masses. Old right cataract surgery. PARANASAL SINUSES: No fluid levels. Mucosa normal. OTHER: No other significant finding. IMPRESSION: No acute findings. Old right frontal craniotomy and bilateral inferior frontal encephalomalacia EVIDENCE OF ACUTE STROKE: NO. TECHNICAL DOCUMENTATION: JOB ID: [id number] [employer]- All Rights Reserved Reading location - IP/workstation name: [email or web address]
[2018-01-13] MEDS: DICYCLOMINE HCL 10 MG CAPSULE PO SCH ×2 (13:51→19:15)
[2018-01-13] MEDS: ASPIRIN 81 MG TABLET, ENT COATED PO SCH (13:51)
[2018-01-13] MEDS: LAMOTRIGINE 100 MG TABLET PO SCH ×2 (13:51→23:28)
[2018-01-13] MEDS: TOPIRAMATE 100 MG TABLET PO SCH ×2 (13:51→23:27)
[2018-01-13] MEDS: CARBIDOPA/LEVODOPA 25-100 MG TABLET PO SCH ×3 (13:51→19:12)
[2018-01-13] MEDS: MAGNESIUM HYDROXIDE SUSP 30 ML UDCUP PO SCH (13:51)
[2018-01-13] MEDS ORDERED: ONDANSETRON HCL INJ/PF 4 MG/2 ML SDV IV PRN (15:46)
--- NOTE | 2018-01-13 15:53 | PDOC PROGRESS REPORT ---
Subjective Progress Note for:: 01/13/18 Subjective:: The patient is a 78-year-old female with a past medical history of hypertension , lung cancer, breast, colon, brain cancer with subsequent seizure disorder, Parkinson's with dementia who was admitted on 01/13/18 for altered mental status following, fecal impaction with nausea and vomiting. The patient is seen on morning rounds with her daughter in law (primary clinical psychologist) present. She is found resting in bed comfortably on room air. The patient is awake and responsive/resistant to touch but does not follow commands. She does open her eyes briefly, make eye contact, and asks "who are you?" But otherwise does not talk or answer questions. The daughter reports that she is very concerned as this is not like her [id number]. At baseline, the patient is somewhat confused but is alert, conversational, and independently ambulatory. The [id number] is concerned that she may have had a stroke due to some right facial droop. The [id number] reports that the patient was here approximately a week ago for nausea and vomiting. She states that at that time she was told that the patient needed to eat more and was instructed to provide her with MiraLAX to assist with constipation and to remind her to eat and drink. She states that following discharge, they did follow up with Dr. Gillespie as instructed. She states that the patient continued to have daily nausea, vomiting, diarrhea and has been unable to take her medications since time of discharge. Review of systems is unable to be obtained secondary to altered mental status. Reason For Visit: CONJUNCTIVITIS,GASTROENTERITIS,HEADACHE,CHEST PAIN Physical Exam Vital Signs: Temp Pulse Resp BP Pulse Ox 98.7 F 84 14 155/60 H 99 01/13/18 11:41 01/13/18 11:41 01/13/18 11:41 01/13/18 11:41 01/13/18 11:41 Intake & Output 01/12/18 01/13/18 01/14/18 06:59 06:59 06:59 Intake Total 1000 Balance 1000 Weight 44.9 kg General appearance: PRESENT: no acute distress, disheveled, thin, well-developed Head exam: PRESENT: atraumatic, normocephalic Eye exam: PRESENT: conjunctival injection, PERRLA, other - Yellow, crusted discharge to bilateral eyes, R>L. ABSENT: scleral icterus Ear exam: PRESENT: normal external ear exam Mouth exam: PRESENT: moist, tongue midline Teeth exam: PRESENT: edentulous Neck exam: ABSENT: carotid bruit, JVD, lymphadenopathy, thyromegaly Respiratory exam: PRESENT: clear to auscultation rodrigo, symmetrical, unlabored. ABSENT: rales, rhonchi, wheezes Cardiovascular exam: PRESENT: RRR, +S1, +S2. ABSENT: diastolic murmur, rubs, systolic murmur Pulses: PRESENT: normal dorsalis pedis pul Vascular exam: PRESENT: normal capillary refill GI/Abdominal exam: PRESENT: normal bowel sounds, soft. ABSENT: distended, guarding, mass, organolmegaly, rebound, tenderness Rectal exam: PRESENT: deferred Extremities exam: PRESENT: full ROM. ABSENT: calf tenderness, clubbing, pedal edema Neurological exam: PRESENT: awake, other - The patient is awake, she resists my attempts to examine eyes and withdraws from touch. She pulls against me equally with bilateral arms. She does not participate with exam but is noted to move all extremities equally. No facial droop on exam; of note, the patient is not wearing her dentures.. ABSENT: oriented to person, oriented to place, oriented to time, oriented to situation, motor sensory deficit Psychiatric exam: ABSENT: homicidal ideation, suicidal ideation Skin exam: PRESENT: dry, intact, warm. ABSENT: cyanosis, rash Results Laboratory Results: 01/13/18 04:18 01/13/18 04:18 01/13/18 01/13/18 04:18 04:18 WBC 16.6 H RBC 4.68 Hgb 13.5 Hct 40.4 MCV 86 MCH 28.9 MCHC 33.5 RDW 14.0 Plt Count 223 Seg Neutrophils % Not Reportable Lymphocytes % Not Reportable Monocytes % Not Reportable Eosinophils % Not Reportable Basophils % Not Reportable Absolute Neutrophils Not Reportable Absolute Lymphocytes Not Reportable Absolute Monocytes Not Reportable Absolute Eosinophils Not Reportable Absolute Basophils Not Reportable Sodium 136.2 L Potassium 3.9 Chloride 100 Carbon Dioxide 21 L Anion Gap 15 BUN 13 Creatinine 0.72 Est GFR ( Amer) > 60 Est GFR (Non-Af Amer) > 60 Glucose 112 H Calcium 9.7 01/13/18 13:25 Troponin I < 0.012 Impressions: Head CT 01/12/18 09:41 IMPRESSION: Chronic changes. No acute findings. EVIDENCE OF ACUTE STROKE: NO. Abdomen/Pelvis CT 01/13/18 00:00 IMPRESSION: NO SIGNIFICANT OR ACUTE PROCESS IN THE ABDOMEN OR PELVIS. Head MRI 01/13/18 00:00 IMPRESSION: No acute findings. Old right frontal craniotomy and bilateral inferior frontal encephalomalacia EVIDENCE OF ACUTE STROKE: NO. Assessment & Plan - Diagnosis (1) Acute encephalopathy Is this a current diagnosis for this admission?: Yes Plan: The patient is noted to have decreased mental status status post witnessed seizure in the emergency department last night. Encephalopathy is likely multifactorial secondary to postictal phase, benzodiazepine administration (she received 3 mg of Ativan overnight), acute illness (fecal impaction resulting in abdominal pain, nausea, vomiting, diarrhea ), and non-administration of medications (antiseizure, parkinsonian, dementia medications) secondary to GI upset in the setting of Parkinson's disease and dementia. CT of the head demonstrates chronic changes but no evidence of acute CVA. MRI of the head revealed an old right frontal craniotomy and bilateral inferior frontal encephalomalacia, but no evidence of acute stroke. CTA of the chest: no acute cardiopulmonary findings. No pulmonary embolus. Chronic scar pattern of the right lung consistent with history of treated lung cancer. Electrolytes reveal mild hyponatremia. Troponins are negative. Infectious workup: Urinalysis is negative, C. difficile and stool studies are pending, no evidence of pneumonia by CTA of the chest, benign CT of the abdomen. The patient does have an elevated white count of 16.6, but as she remains afebrile, I believe this to be an inflammatory reaction rather than reflective of an infectious process. Blood and urine cultures are pending. Will hold on antibiotic therapy at this time. The patient is admitted to the medical floor on continuous cardiac telemetry. Avoid sedating medications. Fall, seizure, aspiration precautions are in place; will provide for patient safety. Continue IV maintenance fluids. Remaining plan as outlined below. (2) Seizure Is this a current diagnosis for this admission?: Yes Plan: The patient received a loading dose of IV Keppra while in the emergency department last night. She did receive a total of 3 mg of Ativan overnight for seizure-like activity. We will continue IV Keppra 500 mg twice daily until able to tolerate p.o. meds. Home medication regiment includes Sinemet, Topamax, Lamictal, and Keppra. The patient has not been receiving these medications for greater than a week secondary to nausea, vomiting, and diarrhea. As absence of these medications may be contributing to the patient's altered mental status, will consider placement of a NG tube for medication administration if she is not tolerating p.o. in the morning. (3) Fecal impaction Is this a current diagnosis for this admission?: Yes Plan: CTA of the chest and abdomen during the emergency department evaluation was notable for fecal impaction. Follow-up noncontrasted CT of the abdomen and pelvis to evaluate for ileus, obstruction, colitis is negative for acute processes. However, significant stool load is noted following lactulose enema. We will try a molasses enema. Once tolerating p.o., the patient should be placed on a bowel regiment of stool softeners and MiraLAX daily. (4) Abdominal pain Is this a current diagnosis for this admission?: Yes Plan: Likely secondary to fecal impaction. Noncontrasted CT of the abdomen is negative for acute processes. We will avoid opiates. May resume Bentyl once tolerating p.o. (5) Conjunctivitis Qualifiers: Conjunctivitis type: acute Acute conjunctivitis type: bacterial Laterality: bilateral Qualified Code(s): H10.33 - Unspecified acute conjunctivitis, bilateral Is this a current diagnosis for this admission?: Yes Plan: Continue gentamicin drops. (6) Dementia Qualifiers: Dementia type: Parkinson's disease Is this a current diagnosis for this admission?: Yes Plan: We will provide for patient safety. We will resume Namenda once tolerating p.o. (7) HTN (hypertension) Qualifiers: Hypertension type: unspecified Qualified Code(s): I10 - Essential (primary ) hypertension Is this a current diagnosis for this admission?: Yes Plan: It does not appear that the patient is on any home antihypertensive medications. Blood pressures have been elevated: 156/60 - 207/86. As needed hydralazine IV for blood pressure control is available. We will monitor closely for additional need and likely initiate oral antihypertensive once patient is tolerating p.o. (8) Nausea & vomiting Is this a current diagnosis for this admission?: Yes Plan: No emesis overnight. Secondary to fecal impaction. Antiemetics as needed. Consider NG tube. (9) Parkinson disease Is this a current diagnosis for this admission?: Yes Plan: We will resume Sinemet as soon as possible. As absence of this medication may be contributing to the patient's decreased alertness, will consider NG tube placement for medication administration if the patient is not tolerating p.o. by morning. (10) Diarrhea Qualifiers: Diarrhea type: unspecified type Qualified Code(s): R19.7 - Diarrhea, unspecified Is this a current diagnosis for this admission?: Yes Plan: Likely secondary to fecal impaction. We will obtain stool for C. difficile and culture. - Time Time Spent with patient: 35 or more minutes Medications reviewed and adjusted accordingly: Yes - Inpatient Certification Based on my medical assessment, after consideration of the patient's comorbidities, presenting symptoms, or acuity I expect that the services needed warrant INPATIENT care.: Yes I certify that my determination is in accordance with my understanding of Medicare's requirements for reasonable and necessary INPATIENT services [42 CFR 412.3e].: Yes Medical Necessity: Need For IV Fluids, Need for Neurological Checks, Risk of Complication if Not Cared For in Hospital
[2018-01-13] MEDS: LEVETIRACETAM 1500 MG/NACL-ISO 1,500 MG/100 ML RTUPB IV SCH (19:12)
[2018-01-13] MEDS: FLUTICASONE NASAL SPRAY 50 MCG/SPRY 120 SPRAY/16 GM NASL SCH (19:13)
[2018-01-13] MEDS: GENTAMICIN SULFATE 0.3% OPH SOLN 5 ML OU SCH ×2 (19:14→23:27)
[2018-01-13] MEDS ORDERED: MIRTAZAPINE 15 MG TABLET PO SCH (22:00)
[2018-01-13] MEDS ORDERED: LEVETIRACETAM 500 MG/NACL-ISO 500 MG/100 ML RTUPB IV SCH (22:00)
[2018-01-14] MEDS: GENTAMICIN SULFATE 0.3% OPH SOLN 5 ML OU SCH ×4 (03:01→15:14)
[2018-01-14] MEDS: HEPARIN SOD (PORCINE) 5,000 UNIT/ML 1 ML SYRINGE SUBCUT SCH ×2 (05:40→15:14)
[2018-01-14] MEDS: NORMAL SALINE 1000 ML 1,000 ML IV PRN (05:41)
[2018-01-14] MEDS: LEVETIRACETAM 1500 MG/NACL-ISO 1,500 MG/100 ML RTUPB IV SCH (05:41)
[2018-01-14 05:50] LABS: ABSOLUTE LYMPHOCYTES (AUTO) 1.1 10^3/uL (0.5-4.7); ABSOLUTE MONOCYTES (AUTO) 0.8 10^3/uL (0.1-1.4); ABSOLUTE NEUT (AUTO) 8.3 10^3/uL (1.7-8.2); BASOPHILS % (AUTO) 0.2 % (0-2); EOSINOPHILS % (AUTO) 0.1 % (0-6); HEMATOCRIT 35.6 % (36.0-47.0); HEMOGLOBIN 12.1 g/dL (12.0-15.5); LYMPHOCYTES % (AUTO) 10.9 % (13-45); MEAN CORPUSCULAR HEMOGLOBIN 29.3 pg (27.0-33.4); MEAN CORPUSCULAR HGB CONC 33.9 g/dL (32.0-36.0); MEAN CORPUSCULAR VOLUME 86 fl (80-97); PLATELET COUNT 180 10^3/uL (150-450); RED BLOOD COUNT 4.12 10^6/uL (3.72-5.28); RED CELL DISTRIBUTION WIDTH 13.6 % (11.5-14.0); SEGMENTED NEUTROPHILS % (AUTO) 80.8 % (42-78); TOTAL CELLS COUNTED % (AUTO) 100 %; WHITE BLOOD COUNT 10.3 10^3/uL (4.0-10.5)
[2018-01-14 06:10] LABS: ANION GAP 10 (5-19); BLOOD UREA NITROGEN 13 mg/dL (7-20); CALCIUM 8.8 mg/dL (8.4-10.2); CARBON DIOXIDE 22 mmol/L (22-30); CHLORIDE 110 mmol/L (98-107); GLUCOSE 84 mg/dL (75-110); POTASSIUM 3.2 mmol/L (3.6-5.0); SODIUM 142.4 mmol/L (137-145)
[2018-01-14] MEDS: IPRATROPIUM/ALBUTEROL 0.5-2.5 MG/3 ML AMPUL NEB SCH (07:41)
[2018-01-14] MEDS ORDERED: ACETAMINOPHEN 325 MG TABLET ONE (09:55)
[2018-01-14] MEDS: TOPIRAMATE 100 MG TABLET PO SCH (09:57)
[2018-01-14] MEDS: ASPIRIN 81 MG TABLET, ENT COATED PO SCH (09:58)
[2018-01-14] MEDS: DICYCLOMINE HCL 10 MG CAPSULE PO SCH ×2 (09:58→15:13)
[2018-01-14] MEDS: LAMOTRIGINE 100 MG TABLET PO SCH (09:58)
[2018-01-14] MEDS: CARBIDOPA/LEVODOPA 25-100 MG TABLET PO SCH ×2 (09:58→15:13)
[2018-01-14] MEDS: FLUTICASONE NASAL SPRAY 50 MCG/SPRY 120 SPRAY/16 GM NASL SCH (09:59)
[2018-01-14] MEDS ORDERED: (PENDING PHARMACY ID) (Cyanocobalamin (Vitamin B-12) [Vitamin B-12] 50 MCG) PO SCH (10:00)
[2018-01-14] MEDS ORDERED: (PENDING PHARMACY ID) (Memantine Hcl [Namenda Xr] 28 MG) PO SCH (10:00)
[2018-01-14] MEDS ORDERED: BISACODYL 10 MG SUPP.RECT PR ONE (10:00)
[2018-01-14] MEDS ORDERED: POLYETHYLENE GLYCOL 3350 POWDER 17 GM/1 PACKET PO SCH (10:00)
[2018-01-14] MEDS: MAGNESIUM HYDROXIDE SUSP 30 ML UDCUP PO SCH (10:01)
--- NOTE | 2018-01-14 13:59 | PDOC DISCHARGE SUMMARY ---
General - Admit/Disc Date/PCP Admission Date/Primary Care Provider: 01/13/18 00:16 Discharge Date: 01/14/18 - Discharge Diagnosis (1) Acute encephalopathy Is this a current diagnosis for this admission?: Yes Summary: Resolved; the patient is now at baseline per family members. The patient admitted for decreased mental status status post witnessed seizure in the emergency department. Encephalopathy was multifactorial secondary to postictal phase, benzodiazepine administration (she received 3 mg of Ativan overnight), acute illness (fecal impaction resulting in abdominal pain, nausea, vomiting, diarrhea), and non- administration of medications (antiseizure, parkinsonian, dementia medications) secondary to GI upset in the setting of Parkinson's disease and dementia. CT of the head demonstrates chronic changes but no evidence of acute CVA. MRI of the head revealed an old right frontal craniotomy and bilateral inferior frontal encephalomalacia, but no evidence of acute stroke. CTA of the chest: no acute cardiopulmonary findings. No pulmonary embolus. Chronic scar pattern of the right lung consistent with history of treated lung cancer. Electrolytes reveal mild hyponatremia. Troponins are negative. Infectious workup: Urinalysis is negative, no evidence of pneumonia by CTA of the chest, benign CT of the abdomen. The patient did have an elevated white count of 16.6 which was likely related to inflammation following her seizure. Blood cultures have no growth to date. Urine culture is positive for gram- negative rods. The patient was supported with IV fluids, n.p.o. status, and IV Keppra. She is now alert and oriented to her baseline. She is independently ambulatory to the bathroom. She is tolerating a full liquid diet and has been able to take her medications without nausea, vomiting, or abdominal pain. At time of discharge, the patient is in stable condition. She is maintaining oxygen saturations on room air. She is tolerating p.o. intake. She is instructed to resume her home medications in addition to ciprofloxacin for positive urine culture, gentamicin for conjunctivitis, Colace and MiraLAX for constipation. She is advised to follow-up with her primary care provider within 1 week. (2) Seizure Is this a current diagnosis for this admission?: Yes Summary: The patient had a witnessed seizure in the emergency department. It is likely that the seizure was related to subtherapeutic Keppra treatment as the patient has had nausea and vomiting 1 week which is now resolved. She received a loading dose of IV Keppra while in the emergency department followed by IV Keppra 500 mg twice daily. She did receive a total of 3 mg of Ativan overnight for seizure-like activity. She has had no further seizure activity while admitted. Return to her baseline mental status and is now tolerating p.o. intake. She is advised to continue her home medication regimen for seizure. (3) Fecal impaction Is this a current diagnosis for this admission?: Yes Summary: CTA of the chest and abdomen during the emergency department evaluation was notable for fecal impaction. She was provided a lactulose enema with moderate stool output. A follow-up noncontrasted CT of the abdomen and pelvis to evaluate for ileus, obstruction, colitis is negative for acute processes. However, significant stool load was noted. The patient was then provided a molasses enema with copious stool output. The patient's symptoms of nausea, vomiting, diarrhea, abdominal distention with comfort have subsequently resolved and she is tolerating p.o. intake. She is provided prescriptions for Colace and MiraLAX to continue as an outpatient. She is advised to follow-up with her primary care provider within 1 week or sooner if symptoms recur. (4) Abdominal pain Is this a current diagnosis for this admission?: Yes Summary: Secondary to fecal impaction; resolved. (5) Conjunctivitis Is this a current diagnosis for this admission?: Yes Summary: The patient will be discharged with a prescription for erythromycin ointment. (6) Dementia Is this a current diagnosis for this admission?: Yes (7) HTN (hypertension) Is this a current diagnosis for this admission?: Yes Summary: The patient was noted to be hypertensive immediately prior to her seizure. Her hypertension has since resolved and she has not required medications for blood pressure control. She is advised to follow with her primary care provider within 1 week. (8) Nausea & vomiting Is this a current diagnosis for this admission?: Yes Summary: Secondary to fecal impaction; resolved. (9) Parkinson disease Is this a current diagnosis for this admission?: Yes (10) Diarrhea Is this a current diagnosis for this admission?: Yes Summary: Secondary to fecal impaction; now resolved. - Additional Information Resuscitation Status: Full Code Discharge Diet: As Tolerated Discharge Activity: Activity As Tolerated, Balance Activity w/Rest, Slowly Increase Activity Prescriptions: Ciprofloxacin HCl [Cipro 500 mg Tablet] 500 mg PO BID #20 tablet Docusate Sodium [Colace] 100 mg PO BID #60 capsule Gentamicin Sulfate [Gentak] 3.5 gm OP TID 10 Days oint...g. Polyethylene Glycol 3350 [Miralax] 17 gm PO DAILY 30 Days #17 powder Home Medications: Carbidopa/Levodopa [Sinemet 25-100 mg Tablet] 1 each PO TID 12/27/17 Cyanocobalamin (Vitamin B-12) [Vitamin B-12] 50 mcg PO DAILY 12/27/17 Dicyclomine HCl [Bentyl 10 mg Capsule] 10 mg PO TID 12/27/17 Fluticasone Propionate [Flonase Nasal [place] 50 Mcg/[place] 16 gm] 2 sprays NASL DAILY 12/27/17 Lamotrigine [Lamictal] 200 mg PO Q12 12/27/17 Levetiracetam [Keppra] 1,500 mg PO QAM 12/27/17 Memantine HCl [Namenda Xr] 28 mg PO DAILY 12/27/17 Topiramate [Topamax 100 mg Tablet] 100 mg PO Q12 12/27/17 Aspirin [Ecotrin 81 mg EC Tablet] 81 mg PO DAILY tabec 12/29/17 Ciprofloxacin HCl [Cipro 500 mg Tablet] 500 mg PO BID #20 tablet 01/14/18 Docusate Sodium [Colace] 100 mg PO BID #60 capsule 01/14/18 Gentamicin Sulfate [Gentak] 3.5 gm OP TID 10 Days oint...g. 01/14/18 Mirtazapine [Remeron 15 mg Tablet] 7.5 mg PO QHS tablet 01/14/18 Polyethylene Glycol 3350 [Miralax] 17 gm PO DAILY 30 Days #17 powder 01/14/18 History of Present Illness History of Present Illness: Per H&P by Dr. Hadley: WENDI SAMSON is a 78 year old female with a past medical history of hypertension, lung cancer, seizure disorder, breast, colon, brain cancer, Parkinson's with dementia. Patient presented to the emergency room with nausea vomiting abdominal pain unable to tolerate p.o. diet or medications. In the emergency room she has an initial unremarkable workup followed by a seizure treated with Ativan with postictal confusion/sedation. CT chest is unremarkable but notable for marketed fecal impaction. She is referred to the hospitalist for admission, unable to provide history secondary to sedation. Physical Exam Vital Signs: Temp Pulse Resp BP Pulse Ox 99.9 F 97 14 145/72 H 98 01/14/18 03:17 01/14/18 07:41 01/14/18 07:41 01/14/18 03:17 01/14/18 07:41 Intake & Output 01/13/18 01/14/18 01/15/18 06:59 06:59 06:59 Intake Total 1000 5350 Output Total 300 Balance 1000 5050 Weight 44.9 kg 42.638 kg General appearance: PRESENT: no acute distress, disheveled, hard of hearing, thin, well-developed Head exam: PRESENT: atraumatic, normocephalic Eye exam: PRESENT: conjunctival injection, EOMI, periorbital swelling - Left eye erythema, conjunctival injection, and purulen drainage, PERRLA. ABSENT: scleral icterus Ear exam: PRESENT: normal external ear exam Mouth exam: PRESENT: moist, tongue midline Neck exam: ABSENT: carotid bruit, JVD, lymphadenopathy, thyromegaly Respiratory exam: PRESENT: clear to auscultation rodrigo, symmetrical, unlabored. ABSENT: rales, rhonchi, wheezes Cardiovascular exam: PRESENT: RRR, +S1, +S2. ABSENT: diastolic murmur, rubs, systolic murmur Pulses: PRESENT: normal dorsalis pedis pul Vascular exam: PRESENT: normal capillary refill GI/Abdominal exam: PRESENT: normal bowel sounds, soft. ABSENT: distended, guarding, mass, organolmegaly, rebound, tenderness Rectal exam: PRESENT: deferred Extremities exam: PRESENT: full ROM. ABSENT: calf tenderness, clubbing, pedal edema Neurological exam: PRESENT: alert, awake, oriented to person, oriented to place , oriented to situation, CN II-XII grossly intact, other - Slightly confused; at baseline per family. ABSENT: oriented to time, motor sensory deficit Psychiatric exam: PRESENT: appropriate affect, normal mood. ABSENT: homicidal ideation, suicidal ideation Skin exam: PRESENT: dry, intact, warm. ABSENT: cyanosis, rash Results Laboratory Results: 01/14/18 04:45 01/14/18 04:45 01/14/18 01/14/18 04:45 04:45 WBC 10.3 RBC 4.12 Hgb 12.1 Hct 35.6 L MCV 86 MCH 29.3 MCHC 33.9 RDW 13.6 Plt Count 180 Seg Neutrophils % 80.8 H Lymphocytes % 10.9 L Monocytes % 8.0 Eosinophils % 0.1 Basophils % 0.2 Absolute Neutrophils 8.3 H Absolute Lymphocytes 1.1 Absolute Monocytes 0.8 Absolute Eosinophils 0.0 Absolute Basophils 0.0 Sodium 142.4 Potassium 3.2 L Chloride 110 H Carbon Dioxide 22 Anion Gap 10 BUN 13 Creatinine 0.65 Est GFR ( Amer) > 60 Est GFR (Non-Af Amer) > 60 Glucose 84 Calcium 8.8 01/13/18 01/13/18 13:25 19:43 Troponin I < 0.012 < 0.012 Impressions: Head CT 01/12/18 09:41 IMPRESSION: Chronic changes. No acute findings. EVIDENCE OF ACUTE STROKE: NO. Abdomen/Pelvis CT 01/13/18 00:00 IMPRESSION: NO SIGNIFICANT OR ACUTE PROCESS IN THE ABDOMEN OR PELVIS. Head MRI 01/13/18 00:00 IMPRESSION: No acute findings. Old right frontal craniotomy and bilateral inferior frontal encephalomalacia EVIDENCE OF ACUTE STROKE: NO. Qualifiers - * PATIENT BEING DISCHARGED WITH ANY OF THE FOLLOWING DIAGNOSIS: No Plan Discharge Plan: Discharge to home in the care of family members. Follow up with your primary care provider, Dr. Gillespie, within [address] Solano's office (oncologist) to schedule appointment within the next 4 -6 weeks to establish care. Time Spent: Less than 30 Minutes
[2018-01-14] MEDS ORDERED: POTASSIUM CHLORIDE 20 MEQ/15 ML UDCUP PO SCH (14:00)
[2018-01-14 15:26] VITALS: BP 126/65
== END 2018-01-14 16:47 | disposition home or self-care (01) ==
LOC: ER 09:05 → EH 01-13 00:16 → 5 01-13 01:59
PROVIDERS: ADMIT Internal Medicine; ATTEND Internal Medicine
DX: G92 Toxic encephalopathy (principal); T42.4X5A Adverse effect of benzodiazepines, initial encounter; Y92.239 Unspecified place in hospital as the place of occurrence of the external cause; K56.41 Fecal impaction; R19.7 Diarrhea, unspecified; G31.83 Neurocognitive disorder with Lewy bodies; F02.80 Dementia in other diseases classified elsewhere, unspecified severity, without behavioral disturbance, psychotic disturbance, mood disturbance, and anxiety; G40.909 Epilepsy, unspecified, not intractable, without status epilepticus; C34.90 Malignant neoplasm of unspecified part of unspecified bronchus or lung; R07.9 Chest pain, unspecified; H10.33 Unspecified acute conjunctivitis, bilateral; E87.1 Hypo-osmolality and hyponatremia; G93.89 Other specified disorders of brain; D72.829 Elevated white blood cell count, unspecified; R82.79 Other abnormal findings on microbiological examination of urine; R29.810 Facial weakness; Z85.038 Personal history of other malignant neoplasm of large intestine; Z85.841 Personal history of malignant neoplasm of brain; Z98.890 Other specified postprocedural states; Z92.3 Personal history of irradiation; Z87.891 Personal history of nicotine dependence; Z90.710 Acquired absence of both cervix and uterus; Z86.19 Personal history of other infectious and parasitic diseases; Z79.82 Long term (current) use of aspirin; Z79.899 Other long term (current) drug therapy; Z85.3 Personal history of malignant neoplasm of breast
CPT/HCPCS: 93005; 94640 ×3; 99285; 96360; 36415 ×3; 87040; 87086; 82553; 82550; 85025 ×3; 87088; 80048 ×2; 80053; 81001; 84484 ×2; 87186; 70551; 70450; 71275; 74176; 93010; 97163; G0378 ×3; A9270 ×15; J1644 ×2; J3490 ×4; J0360; J2060 ×2; J7030 ×3; J1953 ×4; G8978; G8979; J7620; S0119